=== PATIENT | male | born 1935 | race Caucasian/White ===

== ENCOUNTER → 2016-09-06 | Outpatient (CLI) | payer OTHER, BC | LOC: BMCIMAGING 15:23 | PROVIDERS: ATTEND Nurse Practitioner Adult Health | DX: J98.4 Other disorders of lung (principal) ==

== ENCOUNTER → 2016-09-28 | Outpatient (CLI) | payer OTHER, BC | LOC: BMCIMAGING 10:13 | PROVIDERS: ATTEND Nurse Practitioner Adult Health | DX: J98.4 Other disorders of lung (principal) ==

== ENCOUNTER → 2017-01-04 | Outpatient (CLI) | payer OTHER, BC | LOC: BMCIMAGING 09:33 | PROVIDERS: ATTEND Nurse Practitioner Adult Health | DX: M53.3 Sacrococcygeal disorders, not elsewhere classified (principal); I70.0 Atherosclerosis of aorta ==